=== PATIENT | male | born 1985 | race Caucasian/White ===

== ENCOUNTER 2023-09-09 23:57 | Emergency (ER) | payer MEDICAID ==
[~2023-09-09] VITALS: Ht 208.3 cm; Wt 90.0 kg
[2023-09-09 23:59] VITALS: TEMP 97.8; O2SAT 100
[2023-09-10 02:33] VITALS: BP 112/64; PULSE 82; RESP 18
[2023-09-10] MEDS: HYDROCODONE/ACETAMINOPHEN 10/325MG TABLET PO ONE (02:33)
== END 2023-09-10 05:35 | disposition home or self-care (01) ==
LOC: ER 23:57
DX: S82.852A Displaced trimalleolar fracture of left lower leg, initial encounter for closed fracture (principal); S00.03XA Contusion of scalp, initial encounter; W01.0XXA Fall on same level from slipping, tripping and stumbling without subsequent striking against object, initial encounter; Y93.89 Activity, other specified; Y92.89 Other specified places as the place of occurrence of the external cause; Y99.8 Other external cause status
CPT/HCPCS: 99284; 73610; 70450; 70486; 29505; Z7610